=== PATIENT | female | born 1950 | race Caucasian/White ===

== ENCOUNTER → 2016-10-14 | Outpatient (CLI) | payer MEDICARE, BC ==
[~2016-10-14] MED LIST: 00186-0370-20 IH; ALPRAZOLAM1 MG PO; ARICEPT 5MG PO; ASPIRIN 32325 MG/TAB PO; B-1100 MG PO; BACTRIM DS 8001 TAB PO; CARAFATE 1GM1 G PO; CLONAZEPAM PO; COLACE 100100 MG/CAP PO; COPPER; COPPER PO; DESYREL 50MG50 MG PO; DICLOFENAC SOD100 M1 PO; DULERA1 ARO; ECHINACEA500 MG PO; FISH OIL1 IU PO; FLEXERIL 1010 MG/TAB; FLONASE NASAL S16 GM NS; FOLIC ACID 11 MG/TA1 PO; GLUCOSAMINE & C1 CA1 PO; GLUCOSAMINE & C1 CAP PO; GLUCOSAMINE 50500 MG PO; GLUCOSAMINE/CHONDROI; HCTZ; HCTZ 25MG25 MG PO; HCTZ12.5TAB PO; KLONOPIN 0.5MG0.5 MG PO; LAMICTAL 25MG T25 MG PO; MIRALAX PA17 GM/Dose PO; MULTIPLE VITAMI1 CAP PO; MULTIVITAMIN FO1 CAP PO; MVI; MYCOSTATIN100000 U/1 TP; NAMENDA 10MG TA10 MG PO; NEURONTIN300 MG/CAP PO; NEXIUM 20MG20 MG PO; NEXIUM 40MG40 MG PO; NEXIUM40 MG PO; NORCO 325 MG-51 TAB; NORVASC 10MG10 MG PO; NUEDEXTA 20 MG-1 CAP PO; OMEGA 31000 MG PO; OMEGA-3 FISH1200 MG PO; PERCOCET 325 MG1 TA2 PO; PERCOCET 325 MG1 TA3 PO; PHARMASSURE ZIN50 MG PO; PROBIOTIC FORMU1 CAP PO; PROBIOTICA100 Milli1 PO; PULMICORT180 MCG/A1 IH; PULMICORT180 MCG/Ac IH; PULMICORT90 MCG/Act IH; RT SPIRIVA18 MCG IH; SEREVENT IH; SEREVENT21 MCG/ACT IH; SINGULAIR 110 MG/TAB PO; SINGULAIR10 MG PO; SUPER EPA 1201200 MG PO; THIAMINE 1100 MG/TAB PO; THIAMINE HCL; TOPAMAX100 MG PO; TOPAMAX50 MG PO; TOPIRAMATE PO; TRAMADOL; TUDORZA IH; TYLENOL 500MG500 MG PO; TYLENOL PM EXTR1 TA1 PO; ULTRACET TABL1 UDTAB PO; ULTRAM 50MG TAB50 MG PO; ULTRAM ER100 MG PO; ULTRAM100 MG PO; VESICARE 5MG5 MG PO; VIIBRYD40 MG; VIIBRYD40 MG PO; VITAMIN B12100 MC1 MM; VITAMIN B12100 MCG PO; VITAMIN B121000 MC2 SL; VITAMIN C BUFF500 MG PO; VITAMIN C500 MG; VITAMIN D31000 IU PO; VITAMIN E1000 U/CAP PO; VITRON C; WELLBUTRIN XL150 MG PO; XANAX 1MG1 MG PO; XANAX1 MG PO; ZINC NATURAL50 MG PO; ZINC50 M1 PO; ZYRTEC 10MG10 MG PO; ZYRTEC10 MG PO; [UNRECOGNIZED DRUG - OTHER]; [UNRECOGNIZED DRUG - OTHER]; [UNRECOGNIZED DRUG - OTHER]; [UNRECOGNIZED DRUG - OTHER]; [UNRECOGNIZED DRUG - OTHER] PO; [UNRECOGNIZED DRUG - OTHER] PO; [UNRECOGNIZED DRUG - OTHER] PO
== END ==
LOC: BHSO 08:44
DX: F33.1 Major depressive disorder, recurrent, moderate (principal)

== ENCOUNTER → 2017-01-29 | Outpatient (CLI) | payer MEDICARE, BC | LOC: BHSO 09:25 | DX: F33.41 Major depressive disorder, recurrent, in partial remission (principal) ==

== ENCOUNTER → 2017-03-17 | Outpatient (CLI) | payer MEDICARE, BC | LOC: BHSO 08:45 | DX: F33.1 Major depressive disorder, recurrent, moderate (principal) ==

== ENCOUNTER → 2017-05-15 | Outpatient (CLI) | payer MEDICARE, BC | LOC: BHSO 08:48 | DX: F41.1 Generalized anxiety disorder (principal) ==

== ENCOUNTER → 2017-07-06 | Outpatient (CLI) | payer MEDICARE, BC | LOC: BHSO 09:06 | DX: F41.1 Generalized anxiety disorder (principal) ==

== ENCOUNTER → 2017-09-07 | Outpatient (CLI) | payer MEDICARE, BC | LOC: BHSO 08:47 | DX: F33.1 Major depressive disorder, recurrent, moderate (principal) ==

== ENCOUNTER → 2019-11-29 | Outpatient (CLI) | payer MEDICARE, BC | LOC: COL.RAD 07:45 | DX: K22.8 Other specified diseases of esophagus (principal) ==

== ENCOUNTER → 2021-02-22 | Outpatient (CLI) | payer MEDICARE, BC | LOC: ZCOL.LAB 14:05 | DX: Z01.89 Encounter for other specified special examinations (principal) ==

== ENCOUNTER 2021-11-24 18:57 | Emergency (ER) | payer MEDICARE, BC ==
[~2021-11-24] VITALS: Ht 162.6 cm; Wt 104.5 kg
[2021-11-24 20:04] LABS: BASO # 0.1 K/mm3 (0.0-0.2); BASO % 0.4 % (0.0-2.0); EOS # 0.1 K/mm3 (0.0-0.7); EOS % 0.5 % (0.0-4.0); GRAN # 15.3 K/mm3 (1.4-6.5); GRAN % 89.5 % (42.2-75.2); HEMATOCRIT 48.5 % (37.0-47.0); HEMOGLOBIN 15.3 g/dl (12.5-16.0); LYMPH # 1.3 K/mm3 (1.2-3.4); LYMPH % 7.4 % (20.0-51.0); MEAN CELL VOLUME 100 fl (80.0-100.0); MEAN CORPUSCULAR HEMOGLOBIN 32 pg (27-31); MEAN CORPUSCULAR HGB CONC 32 g/dl (33.0-37.0); MEAN PLATELET VOLUME 9.2 fl (7.4-10.4); MONO # 0.2 K/mm3 (0.1-0.6); RED BLOOD COUNT 4.86 M/mm3 (4.10-5.30); REDCELL DISTRIBUTION WIDTH-CV 13.1 % (11.5-14.5)
[2021-11-24 20:24] LABS: PLATELET COUNT 301 K/mm3 (130-400)
[2021-11-24 20:33] LABS: ALBUMIN 3.8 gm/dL (3.4-4.8); BILIRUBIN,TOTAL 0.3 mg/dL (0.2-1.2); CREATININE, serum 0.86 mg/dL (0.57-1.11); POTASSIUM 3.8 mmol/L (3.5-4.5); TOTAL PROTEIN 6.6 gm/dL (6.2-8.1)
[2021-11-24 21:36] LABS: COLLECTION METHOD CATHETER
[2021-11-24 21:42] LABS: MUCOUS Present (NOT PRESENT); PH 5 (5-8); SQUAMOUS EPITHELIAL 0-2 /hpf (0-10); URINE APPEARANCE Hazy (CLEAR/HAZY); URINE BACTERIA None Seen /hpf (NONE SEEN); URINE BILIRUBIN Negative (NEGATIVE); URINE BLOOD Negative (NEGATIVE); URINE COLOR Yellow (YELLOW); URINE GLUCOSE Negative (NEGATIVE); URINE KETONE Negative (NEGATIVE); URINE LEUKOCYTE ESTERASE Negative (NEGATIVE); URINE NITRATE Negative (NEGATIVE); URINE PROTEIN(semi-quant) Negative (NEGATIVE); URINE RBC 0-2 /hpf (0-2); URINE UROBILINOGEN Negative (NEGATIVE)
[2021-11-24] MEDS ORDERED: AMOXICILLIN 8751 TAB PO (22:01)
[2021-11-24] MEDS ORDERED: ZOFRAN ODT4 MG PO (22:03)
[2021-11-24 22:20] VITALS: BP 171/98; PULSE 90; TEMP 98
== END 2021-11-24 22:20 | disposition home or self-care (01) ==
LOC: COL.ER 18:57
PROVIDERS: Emergency Medicine
DX: K52.9 Noninfective gastroenteritis and colitis, unspecified (principal); D72.829 Elevated white blood cell count, unspecified; R74.02 Elevation of levels of lactic acid dehydrogenase [LDH]; Z98.84 Bariatric surgery status; Z90.49 Acquired absence of other specified parts of digestive tract; Z20.822 Contact with and (suspected) exposure to COVID-19
CPT/HCPCS: Q9967

== ENCOUNTER 2022-01-15 23:58 | Inpatient (IN) | payer MEDICARE, BC ==
[~2022-01-15] VITALS: Ht 162.6 cm; Wt 104.0 kg
[~2022-01-15 23:58] MED LIST changes: +AMOXICILLIN 8751 TAB PO; +LYRICA 75MG CAP75 MG PO; -MYCOSTATIN100000 U/1 TP; -NAMENDA 10MG TA10 MG PO; +NAMENDA XR 28MG PO; -NORCO 325 MG-51 TAB; +NORCO 325 MG-7.1 TAB PO; +NYAMYC100000 U/G TP; -ULTRAM ER100 MG PO; +VIIBRYD20 MG PO; +ZOFRAN ODT4 MG PO
[2022-01-16 00:29] LABS: HEMATOCRIT 42.4 % (37.0-47.0); HEMOGLOBIN 13.9 g/dl (12.5-16.0); MEAN CELL VOLUME 96 fl (80.0-100.0); MEAN CORPUSCULAR HEMOGLOBIN 31 pg (27-31); MEAN CORPUSCULAR HGB CONC 33 g/dl (33.0-37.0); MEAN PLATELET VOLUME 9.6 fl (7.4-10.4); PLATELET COUNT 348 K/mm3 (130-400); RED BLOOD COUNT 4.42 M/mm3 (4.10-5.30); REDCELL DISTRIBUTION WIDTH-CV 13.5 % (11.5-14.5)
[2022-01-16 00:37] LABS: ALBUMIN 3.6 gm/dL (3.4-4.8); BILIRUBIN,TOTAL 0.4 mg/dL (0.2-1.2); CALCIUM 8.5 mg/dL (8.4-10.2); CREATININE, serum 2.02 mg/dL (0.57-1.11); POTASSIUM 3.5 mmol/L (3.5-4.5); TOTAL PROTEIN 6.7 gm/dL (6.2-8.1)
[2022-01-16 00:55] LABS: BAND 49 % (0-10); EOSINOPHIL 3 % (0-4); LYMPHOCYTE 7 % (20.0-51.0); NEUTROPHILS 23 % (42.0-75.2); PLATELET ESTIMATE NORMAL (NORMAL)
[2022-01-16 04:00] VITALS: BP 110/51; PULSE 101; TEMP 97.7
[2022-01-16 05:28] LABS: ARTERIAL BLD GAS O2 SATURATION 95.5 % (92-100); ARTERIAL BLD GAS TCO2 CT 15.6; ARTERIAL BLOOD GAS BASE EXCESS -13.4 (-2-2); ARTERIAL BLOOD GAS HCO3 14.4 meq/L (22-26); ARTERIAL BLOOD GAS PCO2 39.9 mmHg (35-45); ARTERIAL BLOOD GAS PO2 83.2 mmHg (80-100)
[2022-01-16 05:31] LABS: ARTERIAL BLOOD GAS pH 7.18 (7.35-7.45)
[2022-01-16 06:46] LABS: CALCIUM 7.9 mg/dL (8.4-10.2); CREATININE, serum 1.45 mg/dL (0.57-1.11); POTASSIUM 3.1 mmol/L (3.5-4.5)
--- NOTE | 2022-01-16 07:45 | NUR ---
CALLED HOSPITALIST WITH NEGATIVE C-DIFF RESULT, NO NEW ORDERS AT THIS TIME. HOSPITALIST TEAM TO ROUND AND REVIEW CASE THIS AM.
[2022-01-16 07:48] LABS: CLOSTRIDIUM DIFF A/B NEG; CLOSTRIDIUM DIFF A/B INTERP No C.diff present
--- NOTE | 2022-01-16 08:00 | NUR ---
PATIENT IS ORIENTED X2 BUT DOES DISPLAY CONFUSION/FORGETFULNESS AND REPEATS HERSELF A LOT. WHEN NURSING ENTERED ROOM, PATIENT THOUGHT IT WAS NIGHT. WHEN ASKED WHAT SHE WANTED FOR BREAKFAST THE PATIENT REPEATED THE SAME THING SEVERAL TIMES, IN DIFFERENT ORDER BUT COULDN'T REMEMBER WHAT SHE TOLD ME. PATIENT CONFIRMS HER CONFUSION IS WORSE THAN NORMAL. SHE SEEMS TO STRUGGLE TO FIND HER WORDS. VSS ON TELE. PATIENT ASSISTED TO SIT UP FOR MEDS & BREAKFAST. WHILE GIVING AM MEDS PATIENT ASKED ABOUT HER NARCOTICS AND PILLS FOR HER BACK PAIN. PATIENT IS ON A LOT OF CONTROLED SUBSTANCES THAT MAY HAVE CONTRIBUTED TO HER FALL. ALL CONTROLLED MEDS CURRENTL ON HOLD TILL REVIEWED BY HOSPITALIST TEAM. PATIENT HAS BEEN HAVING LOTS OF LIQUID STOOLS, C-DIFF SENT TO LAB AND IS NEGATIVE. ABG'S INDICATE METABOLIC ACIDOSIS. CT OF HEAD WAS NEGATIVE. AM K+ OF 3.1, PROTOCOL INITIATED. IV FLUIDS INFUSING VIA PUMP INTO LEFT AC IV. RIGHT HAND IV TO INT. BREAKFAST TRAY ORDERED. HEAD TO TOE ASSESSMENT COMPLETE. NOTED SOME SKIN ISSUES, SEE SHIFT ASSESSMENT. PATIENT IS VERY WEAK & CONFUSED. PT/OT/ST ALL CONSULTED. PATIENT LIV[facility] IN [facility]. DNR STATUS. NO OTHER NEEDS AT THIS TIME. HIGH FALL RISK. BED ALARM ON. CALL LIGHT IN REACH.
[2022-01-16 08:02] VITALS: BP 135/60; PULSE 106; TEMP 98.1
[2022-01-16] MEDS ORDERED: FOLIC ACID 11 MG/TA1 PO (08:43)
--- NOTE | 2022-01-16 08:44 | NUR ---
HOSPITALIST TEAM ROUNDING, SEE ORDERS.
[2022-01-16] MEDS ORDERED: IRON TABLETS325 MG PO (08:47)
[2022-01-16] MEDS ORDERED: KLONOPIN 0.5MG0.5 MG PO (09:52)
[2022-01-16] MEDS ORDERED: PROTONIX 40MG T40 MG PO (09:54)
[2022-01-16] MEDS ORDERED: SPIRIVA RESPIMAT4 GM IH (09:55)
[2022-01-16] MEDS ORDERED: ZANAFLEX 4MG TAB4 MG PO (09:56)
[2022-01-16] MEDS ORDERED: XANAX 1MG1 MG PO (10:01)
[2022-01-16] MEDS ORDERED: LIPITOR 10MG10 MG PO (10:02)
[2022-01-16 12:39] VITALS: BP 133/61; PULSE 110; TEMP 99.8
--- NOTE | 2022-01-16 12:42 | NUR ---
Human Resource Management Instructor met with patient to discuss discharge planning. Patient's friend, Magalie is at bedside. Patient lives at [facility] and sees Dr. Sasha Stahl for primary care. Patient has medications delivered to her home by [facility] and uses a walker for ambulation. Patient reports she is normally independent with ADLS and plans to return to [place] at time of discharge. Patient states her son, Bunny (ph#[phone]) who lives in [place] is her DPOA-HC. SW contacted Heena at [facility] and faxed clinical updates. SW also requested copy of DP- if one is on file. SW then contacted Bunny and reviewed discharge plan. Discharge Plan: [facility]
[2022-01-16 13:10] LABS: COLLECTION METHOD CATHETER
[2022-01-16 13:18] LABS: MUCOUS Present (NOT PRESENT); PH 5 (5-8); SQUAMOUS EPITHELIAL None Seen /hpf (0-10); URINE APPEARANCE Hazy (CLEAR/HAZY); URINE BACTERIA Rare /hpf (NONE SEEN); URINE BILIRUBIN Negative (NEGATIVE); URINE BLOOD Negative (NEGATIVE); URINE COLOR Yellow (YELLOW); URINE GLUCOSE Negative (NEGATIVE); URINE KETONE Negative (NEGATIVE); URINE LEUKOCYTE ESTERASE Trace (NEGATIVE); URINE NITRATE Negative (NEGATIVE); URINE PROTEIN(semi-quant) 1+ (NEGATIVE); URINE RBC 0-2 /hpf (0-2); URINE UROBILINOGEN Negative (NEGATIVE)
[2022-01-16 15:42] VITALS: BP 125/61; PULSE 102; TEMP 99.9
[2022-01-16 20:20] VITALS: BP 144/57; PULSE 102; TEMP 99.8
[2022-01-17 00:04] VITALS: BP 129/53; PULSE 94; TEMP 99.2
[2022-01-17 03:41] VITALS: BP 145/60; PULSE 96; TEMP 98.8
[2022-01-17 06:33] LABS: HEMATOCRIT 38.3 % (37.0-47.0); HEMOGLOBIN 12.2 g/dl (12.5-16.0); MEAN CELL VOLUME 99 fl (80.0-100.0); MEAN CORPUSCULAR HEMOGLOBIN 32 pg (27-31); MEAN CORPUSCULAR HGB CONC 32 g/dl (33.0-37.0); MEAN PLATELET VOLUME 9.5 fl (7.4-10.4); PLATELET COUNT 320 K/mm3 (130-400); RED BLOOD COUNT 3.87 M/mm3 (4.10-5.30); REDCELL DISTRIBUTION WIDTH-CV 13.6 % (11.5-14.5)
[2022-01-17 06:57] LABS: BAND 6 % (0-10); EOSINOPHIL 5 % (0-4); LYMPHOCYTE 13 % (20.0-51.0); NEUTROPHILS 62 % (42.0-75.2)
[2022-01-17 06:58] LABS: HYPOCHROMIA 1+; PLATELET ESTIMATE NORMAL (NORMAL)
[2022-01-17 07:01] LABS: ALBUMIN 2.9 gm/dL (3.4-4.8); BILIRUBIN,TOTAL 0.1 mg/dL (0.2-1.2); CALCIUM 8.3 mg/dL (8.4-10.2); CREATININE, serum 0.83 mg/dL (0.57-1.11); MAGNESIUM 1.9 mg/dL (1.6-2.6); POTASSIUM 3.2 mmol/L (3.5-4.5); TOTAL PROTEIN 5.4 gm/dL (6.2-8.1)
[2022-01-17 07:55] VITALS: BP 121/76; PULSE 96; TEMP 97.9; TEMP 98.8
--- NOTE | 2022-01-17 09:45 | NUR ---
Patient assisted up to the chair. She is mostly alert & oriented this am. Hospitalist has rounded. Patient birthday is today, so she has been on the phone alot today. She tolerated breakfast. She has been up to the bathroom twice this am with loose stools. Assisted with pericares. Ivf per orders. Will monitor.
[2022-01-17 11:34] VITALS: BP 123/66; PULSE 99; TEMP 98.5
--- NOTE | 2022-01-17 13:29 | NUR ---
First visit from the clerk travel reservations. prayed with patient. No other needs right now.
--- NOTE | 2022-01-17 15:08 | NUR ---
Blacksmith Apprentice met with patient to discuss home health services. Patient states she receives services already from [facility]. SW contacted Pauline at [facility] and faxed referral. Discharge Plan: [facility] Living with [facility]
[2022-01-17 15:21] VITALS: BP 129/60; PULSE 95; TEMP 98.7
--- NOTE | 2022-01-17 18:14 | NUR ---
Patient sitting up in bed eating dinner. Patient has continued to have frequent trips to the bathroom today with loose stools, specifically increased after an ensure drink. Immodium Prn given today. Did reviewed again with patient why we are giving tylenol and not norco for pain. She has never appeared in serve pain today and did report being suprised how well she was going without narcotics due to her chronic usage. She is also concerned about not getting her sleeping medications. I stressed why we were holding due to her condition unpon arrival to the hospital. She is understanding. Patient has been oriented today, but forgetful at time and rambles with coversations at times. Overall she has done well today.
--- NOTE | 2022-01-17 20:00 | NUR ---
PT IN BED, HAS BEEN ASSISTED TO BATHROOM WITH ONE, VOIDING WITHOUT PROBLEM. HAS IVF TO RT HAND INFUSING WITHOUT REDNESS OR SWELLING. HAS INT TO LEFT AC. IS ALERT AND ORIENTED X4. REVIEWED HOSPITAL MEDS WITH PT AND EXPLAINED RATIONALE FOR HOLDING NARCOTICS, BENZO'S AND SEDATING MEDS. ABD WITH LARGE RT BULGING HERNIA, SMALL DRSG ON SKIN. 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 PT VERY TALKATIVE.
[2022-01-17 20:35] VITALS: BP 135/79; PULSE 97; TEMP 97.9
--- NOTE | 2022-01-17 22:25 | NUR ---
PT TAKES HS MEDS INCLUDING MELATONIN FOR SLEEP. DC'D LAC INT SITE, ANGIOCATH INTACT.
--- NOTE | 2022-01-18 00:02 | NUR ---
TYLENOL 650MG PO FOR LOWER BACK PAIN.
[2022-01-18 00:48] VITALS: BP 146/80; PULSE 85; TEMP 98.5
--- NOTE | 2022-01-18 02:55 | NUR ---
PT AMBULATING IN HALLWAY WITH STAFF, ASKING FOR TYLENOL WITH SHE CAN HAVE IT FOR CHRONIC BACK PAIN.
[2022-01-18 04:34] VITALS: BP 151/74; PULSE 87; TEMP 98
--- NOTE | 2022-01-18 05:50 | NUR ---
TYLENOL 650MG PO FOR LOWER BACK PAIN. HAS NOT RESTED WELL AND WANTS TO GO HOME.
[2022-01-18 06:06] LABS: CALCIUM 8.5 mg/dL (8.4-10.2); CREATININE, serum 0.67 mg/dL (0.57-1.11); MAGNESIUM 1.7 mg/dL (1.6-2.6); POTASSIUM 3.2 mmol/L (3.5-4.5)
--- NOTE | 2022-01-18 08:00 | NUR ---
Patient sitting up in bed working on breakfast tray. She is hoping to discharge home today. She is expecting her children to visit later this am. Overall she is in good spirits and oriented, but forgetful at times.
[2022-01-18 08:15] VITALS: BP 167/78; PULSE 89; TEMP 98.6
[2022-01-18] MEDS ORDERED: PRINIVIL40 MG PO (11:49)
[2022-01-18] MEDS ORDERED: NORCO 325 MG-7.1 TAB PO (11:49)
[2022-01-18 12:34] VITALS: BP 141/67; PULSE 82; TEMP 97.9
--- NOTE | 2022-01-18 12:45 | NUR ---
Discharge orders obtained. Talking with social work for transportation with [facility]. Patient up to the bathroom, no loose stools today. She ordered a light lunch. Int Fortunato. Tele off for discharge
--- NOTE | 2022-01-18 12:59 | NUR ---
Mangle Press Catcher informed patient is ready to discharge back to [facility] with HH services. This Mangle Press Catcher contacted [facility] and Erin RN informs can accept, gives this Mangle Press Catcher telephone contact to coordinate transportation . Transportation is contacted and coordinated for 13:00; RN notified. 12:40-This Mangle Press Catcher received RN contact inquiring about possibility to obtain patient clothing from home for transport. Upon contact to [place] to inquire, this Mangle Press Catcher is notified that patent is not yet able to return, and transportation is postponed. [facility] requesting faxed clinical updates and discharge documentation before confirming acceptance; the facility needs to determine whether she needs an increased level of care. RN notified, and informs patient is cleared by PT to return to her current level of care/residence with HH, with medication changes. Clinical updates and discharge documentation faxed. This Mangle Press Catcher awaiting notification of pt acceptance to return and updated transportation ETA. *Discharge plan: return to [facility] with HH*
--- NOTE | 2022-01-18 13:39 | NUR ---
Laboratory Asst contacted [facility]; Gonzalez informs has received clinical updates and discharge documents and is reviewing, will call back in 5 mins to confirm plan of care and transportation. *Discharge home to [facility] with HH*
--- NOTE | 2022-01-18 13:47 | NUR ---
Gonzalez RN at [facility] informs patient is accepted for return; coordinates transportation for 20 mins. RN notified. 13:48- [facility] RN calls back to inform transportation delayed to 60 mins, and they will bring patient clothing. RN notified.
--- NOTE | 2022-01-18 15:43 | NUR ---
[facility] transportation here to take patient back to [facility]. Patient assisted with dressing. All belongings packed & patietn wheeled out. She denies questions or concerns
--- NOTE | 2022-01-18 15:48 | NUR ---
Attempted to call report to [facility], no answer. Voicemail left
== END 2022-01-18 15:49 | disposition home health service (06) | DRG 871 ==
LOC: COL.ER 23:58 → SURG 01-16 02:45 → COL.ER 01-16 02:45 → SURG 01-16 23:00
PROVIDERS: Internal Medicine; Personal Emergency Response Attendant
DX: A41.9 Sepsis, unspecified organism (principal); J18.9 Pneumonia, unspecified organism; G93.41 Metabolic encephalopathy; N17.9 Acute kidney failure, unspecified; E87.2 Acidosis; F32.A Depression, unspecified; G47.33 Obstructive sleep apnea (adult) (pediatric); G31.09 Other frontotemporal neurocognitive disorder; F02.80 Dementia in other diseases classified elsewhere, unspecified severity, without behavioral disturbance, psychotic disturbance, mood disturbance, and anxiety; J44.9 Chronic obstructive pulmonary disease, unspecified; G47.00 Insomnia, unspecified; F41.9 Anxiety disorder, unspecified; G89.29 Other chronic pain; I10 Essential (primary) hypertension; E86.0 Dehydration; E87.6 Hypokalemia; Z90.49 Acquired absence of other specified parts of digestive tract; Z90.710 Acquired absence of both cervix and uterus; Z98.1 Arthrodesis status; Z85.828 Personal history of other malignant neoplasm of skin; Z23 Encounter for immunization
CPT/HCPCS: OP; 99223-AI; 99233-AI; 99239; J0696; J1644; J3480; J7030

== ENCOUNTER 2022-02-07 09:18 | Day surgery (SDC) | payer MEDICARE, BC ==
[~2022-02-07] VITALS: Ht 162.6 cm; Wt 100.4 kg
[~2022-02-07 09:18] MED LIST changes: +IRON TABLETS325 MG PO; +LIPITOR 10MG10 MG PO; +PRINIVIL40 MG PO; +PROTONIX 40MG T40 MG PO; +SPIRIVA RESPIMAT4 GM IH; +ZANAFLEX 4MG TAB4 MG PO
[2022-02-07 10:16] VITALS: BP 169/84; PULSE 101; TEMP 98.3
[2022-02-07 11:40] VITALS: BP 153/73; PULSE 89; TEMP 98
[2022-02-07 11:55] VITALS: BP 142/73; PULSE 88
[2022-02-07 12:10] VITALS: BP 147/74; PULSE 87
--- NOTE | 2022-02-07 13:59 | NUR ---
1140: Patient arrived back into [facility] following endo procedure. Report received from COLT Jarvis. Patient alert and awake. Requesting apple juice, water, apple sauce, and edu crackers. Vital signs stable. Call light left within reach. 1200: Escorted patient to restroom. Up with assist of 1 and four wheel walker. 1220: Patient doing well. Tolerating food and drink well. No complaint of pain or nausea. Patient saline locked and to get dressed. 1235: MD in to see patient 1240: Patient tolerated food and drink well. Meets discharge criteria went through discharge instructions with patient. Questions answered. IV removed without complications. Patient escorted to patient entrance via wheelchair and left in the care of [facility] transportation.
== END 2022-02-07 13:10 | disposition home or self-care (01) ==
LOC: SDCO 09:18
DX: K52.9 Noninfective gastroenteritis and colitis, unspecified (principal); K59.00 Constipation, unspecified; K57.30 Diverticulosis of large intestine without perforation or abscess without bleeding; R93.3 Abnormal findings on diagnostic imaging of other parts of digestive tract; G47.33 Obstructive sleep apnea (adult) (pediatric); Z99.89 Dependence on other enabling machines and devices; Z79.899 Other long term (current) drug therapy
CPT/HCPCS: J2704; J7030